=== PATIENT | male | born 1965 | race Caucasian/White ===

== ENCOUNTER 2023-05-07 08:48 | Outpatient (CLI) | payer OTHER | END 2023-05-07 08:49 | disposition home or self-care (01) | LOC: CT 08:48 | PROVIDERS: ATTEND Neurological Surgery | DX: G91.8 Other hydrocephalus (principal); G93.89 Other specified disorders of brain; Z98.2 Presence of cerebrospinal fluid drainage device | CPT/HCPCS: 70450 ==